=== PATIENT | female | born 1990 ===

== ENCOUNTER 2023-10-31 01:44 | Emergency (ER) | payer BC, SELFPAY ==
[2023-10-31 02:00] VITALS: BP 158/100; PULSE 118; RESP 18; TEMP 35.9; O2SAT 98; BMI 25.6
--- NOTE | 2023-10-31 02:07 | ED_ITS ---
HPI - Animal Bite General Chief Complaint: Animal Bite Stated Complaint: possible rabies exposure Time Seen by Provider: 10/31/23 02:01 History of Present Illness HPI narrative: Patient is a 33-year-old woman who is up-to-date on her tetanus shot who had a exposure to a raccoon several days ago. She did not have a bite or scratch but she did touch the animal and was concerned that some of it is alive maybe got on her. She had no open wounds or cuts at this time. She is quite anxious and worried. She has had symptoms most compatible with anxiety with palpitations general worrying and body aches. No signs of infection at the touch site. She has had no respiratory symptoms and did not inhale any of the raccoon secretions. Related Data Allergies Allergy/AdvReac Type Severity Reaction Status Date / Time No Known Drug Allergies Allergy Verified 10/31/23 02:05 Review of Systems Status of ROS: Reports: 10 or more systems reviewed and unremarkable except as noted in History and below Exam Narrative: Exam Narrative: EXAM GENERAL: Patient appears extremely anxious. EYES: No scleral icterus. ENT: Tympanic membranes and oropharynx normal. THYROID: no thyroid nodules or thyromegaly. LYMPH: No supraclavicular or cervical lymphadenopathy. SKIN: Visible skin seen during exam normal or with benign process only. EXT: No dependent lower extremity pedal edema. HEART: Regular rate and rhythm with no murmurs, rubs, or gallops. LUNGS: Clear to auscultation bilaterally with no crackles or wheezes. ABD: Soft, non tender, non distended. PSYCH: Good eye contact, speech is not pressured. Const: Vital Signs, click to edit/add: Vital Signs - 24 hr 10/31/23 02:00 Temperature 96.6 F L Pulse Rate [Pulse Oximeter] 118 H Respiratory Rate 18 Blood Pressure [Ri ght Forearm] 158/100 H Pulse Oximetry 98 Oxygen Delivery Me thod Room Air Course Course ED Course: Patient seen and examined. Vital Signs Vital signs: Initial Vital Signs Temperature 96.6 F L 10/31/23 02:00 Temperature Source Temporal Artery Scan 10/31/23 02:00 Pulse Rate 118 H 10/31/23 02:00 Pulse Rhythm Regular 10/31/23 02:00 Respiratory Rate 18 10/31/23 02:00 Blood Pressure 158/100 H 10/31/23 02:00 Blood Pressure Mean 119 H 10/31/23 02:00 Blood Pressure Position Supine 10/31/23 02:00 Pulse Oximetry 98 10/31/23 02:00 Oxygen Delivery Method Room Air 10/31/23 02:00 Vital Signs Temperature 96.6 F L 10/31/23 02:00 Pulse Rate 118 H 10/31/23 02:00 Respiratory Rate 18 10/31/23 02:00 Blood Pressure 158/100 H 10/31/23 02:00 Pulse Oximetry 98 10/31/23 02:00 Oxygen Delivery Method Room Air 10/31/23 02:00 Temperature 96.6 F L 10/31/23 02:00 Pulse Rate 118 H 10/31/23 02:00 Respiratory Rate 18 10/31/23 02:00 Blood Pressure 158/100 H 10/31/23 02:00 Pulse Oximetry 98 10/31/23 02:00 Oxygen Delivery Method Room Air 10/31/23 02:00 MDM - Animal Bite MDM Narrative Medical decision making narrative: Patient is a 33-year-old woman who had exposure to a non infected appearing raccoon. She did not have any bites or mucous membrane exposure. She has chronic anxiety which has worsened. I did carefully examine her in find her to be extremely anxious which is noted on her vital signs as well. I do not believe she has a significant enough exposure to warrant any vaccinations. I offered reassurance and recommended follow-up. Discharge Plan Discharge Clinical Impression: Anxiety Patient Disposition: Home, Self-Care Condition: Stable Additional Instructions: Continue current care. Report any change in symptoms. Follow-up with your doctor as needed. Activity Level: No Restrictions Discharge Diet: Regular Stand Alone Forms: [employer] Info Instructions
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
--- OUTSIDE RECORDS SUMMARY | 2023-10-31 02:16 | XMS_ITS | Continuity of Care Document ---
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 Role Phone Allyssa Nixon MD Unavailable Unavailable Allergies, Adverse Reactions, Alerts Substance Reaction Status Criticality metronidazole Active No Information minocycline HivesHives Active No Information amoxicillin Yeast Infection Active No Informati on Tetracyclines unknown reaction Active No Informa tion Medications Medication Instructions Dosage Effective Dates (start - stop) Status Comments gabapentin 300 mg capsule take 1 capsule by oral route every day 300 MG - Active Vitamin D3 25 mcg (1,000 unit) capsule take 2 by Oral route once 2 - Active Procedures Procedure Date Established Level 4 Established Level 4 Established Level 5 or 40 min 0 New Level 5 or 60 min Offic/outpt E&m New Mod Sever 7 Advance Directives Directive Yes / No Effective Date File Name No Information Encounters Encounter Description Practice Location Reason(s) For Visit Diagnoses Date Provider Providers Copied on Encounter [facility], [address] [address], [facility] [place], [id number], [place] tel:[phone] [facility] No Information 1 Tiffani Spivey. [address] [facility], [facility] [address], [place], [place], [id number], [place]. tel:[phone] [facility], [address] [address], [place], [id number], [place] tel:[phone] [facility] Abdominal pain, unspecified abdominal location 1 Felix Muniz. [address] [facility], [address], [id number], [place]. tel:[phone] Established Level 4 [facility], [address] [address], [place], [id number], [place] tel:[phone] [facility] GI Symptoms or Concerns (chief complaint) Abdominal pain, unspecified abdominal locationAnorexia Early satietyNausea and vomiting, intractability of vomiting not specified, unspecified vomiting typeLoose stools 1 Tiffani Spivey. [address] [place] [address], [address], [id number], [place]. tel:[phone] Referring Provider: Referral Self, USE FOR SELF REFERRALS. [facility], [address] [address], [facility] [place], [id number], [place] tel:[phone] [facility] GI Symptoms or Concerns (chief complaint) No Information 1 Tiffani Spivey. [address] [facility], [facility] [address], [place], [id number], [place]. tel:[phone] Referring Provider: Referral Self, USE FOR SELF REFERRALS. Established Level 4 [facility], [address] [address], [facility] [place], [id number], [place] tel:[phone] [facility] Comment (chief complaint) Abdominal pain, unspecified abdominal locationAnorexia Early satietyNausea and vomiting, intractability of vomiting not specified, unspecified vomiting type 1 Tiffani Spivey. [address] [facility], [facility] [address], [place], [id number], [place]. tel:[phone] Referring Provider: Referral Self, USE FOR SELF REFERRALS. Established Level 5 or 40 min [facility], [address] [address], [place], [id number], [place] tel:[phone] [facility] Comment (chief complaint) Abdominal pain, unspecified abdominal locationAnorexia NauseaLoose stools 0 Tiffani Spivey. [address] [facility], [facility] [address], [place], [place], [id number], [place]. tel:[phone] Referring Provider: Referral Self, USE FOR SELF REFERRALS. New Level 5 or 60 min [facility], [address] [address], [place], [place], [id number], [place] tel:[phone] [facility] GI Symptoms or Concerns (chief complaint) Abdominal pain, unspecified abdominal locationNauseaEa rly satietyLoose stoolsAnorexia 0 Tiffani Spivey. [address] [facility], [facility] [address], [place], [id number], [place]. tel:[phone] Referring Provider: Referral Self, USE FOR SELF REFERRALS. [facility], [address] [address], [place], [place], [id number], [place] tel:[phone] [facility] No Information 0 Leah Olivarez. [address] [facility], [facility] [address], [place], [place], [id number], [place]. tel:[phone] Offic/outpt E&m New Mod Sever [facility], [address] [address], [place], [place], [id number], [place] tel:[phone] [facility] GI Symptoms or Concerns (chief complaint) Nausea and vomiting, intractability of vomiting not specified, unspecified vomiting typeEpigastric abdominal painDietary counseling and surveillance 201 7 Sebastian Tong. [address] [facility], [facility] [address], [place], [place], [id number], [place]. tel:[phone] Referring Provider: Padmini West, [address], [place], [address]. tel:[phone] Family History Family Member Type Diagnosis Age At Onset No Information Immunizations Vaccine Date Status Comments SARS-COV-2 (COVID-19) vaccin e, mRNA, spike protein, LNP, preservative free, 30 mcg/0.3mL dose administered Note: [facility] bi-direct ional interface ; Source: Other Registry measles, mumps and rubella v irus vaccine administered Note: [facility] bi-direct ional interface ; Source: Other Registry tetanus and diphtheria toxoi ds, adsorbed, preservative free, for adult use (2 Lf of tetanus toxoid and 2 Lf of diphtheria toxoid) administered Note: [facility] bi-direct ional interface ; Source: Other Registry Payers Payer name Insurance type Covered alliance party ID [employer](s) [facility] [id number] Social History Type Description Quantity Date Captured Comments Alcohol Use Details Unknown Caffeine Use Details Unknown Tobacco Use Status No Information Smoking Status No Information Sex Female Chief Complaint And Reason For Visit No Information Reason For Referral Reason For Referral No Information Plan Of Treatment Date Type Action Status Goal Lifestyle education regardin g diet completed Referral Ordered: CT Abdomen WITH Contrast Appointment date/timeframe: 08/16/2020 ordered Referral Ordered: CT Abdomen And Pelvis WITHOUT And WITH Contrast Appointment date/timeframe: 08/17/2020 ordered Referral Ordered: Gastric Emptying Study (4 Hours) Appointment date/timeframe: 04/28/2020 ordered Referral Ordered: follow-up visit with Allyssa Nixon MD 1 Month Appointment date/timeframe: 1 Month ordered Referral Ordered: CMP Appointment date/timeframe: 03/23/2020 ordered History Of Present Illness Encounter Date Complaint History Of Prese nt Illness GI Symptoms or Concerns Cielo beavers is a pleasant 30-year-old female who is seen in followup.Her last office visit was 04/04/2020. Please see my note for complete details regarding her relevant history. She is seen via a telephone encounter.In brief, Ms. Temple is a 30-year-old female with untreated anorexia nervosa, purging disorder, depression, anxiety, PTSD, fibromyalgia, and PMDD, who has been seen previously for multiple chronic gastrointestinal symptoms.Since our last visit, the patient reports worsening of her chronic gastrointestinal symptoms which have been present since she was in high school, noted initially in the context of treatment for her eating disorder.She describes flare of symptoms at the end of June. She describes periods of constant abdominal pain which is poorly localized. She notes nausea and vomiting, which has recently become worse. States vomiting triggers her purging disorder. Her symptoms of nausea and vomiting were worse when she was placed on Cymbalta, which is now discontinued. She notes early satiety, bloating. She has had chronic loose stool 1 per day, though at times more. In the last few days, she reports symptoms are starting to return to baseline. She did stop use of marijuana for a very short period of time, but then noted recurrence of her gastrointestinal symptoms, thus resumed use. She states I will never eat if I do not use marijuana. Reports discontinuation of marijuana also triggers her purging disorder.With regard to her eating disorder, she continues to not desire treatment. States I am not trying to recover before summer, I am not at my goal weight. She is followed by her primary care doctor who has been monitoring her electrolytes. She states she cannot exercise because of foot pain, thus she has had to restrict her eating even more. Eats one meal per day. She has been referred to a psychologist for assistance with mental health disorders, however, has not yet scheduled.She discontinued omeprazole as she did not feel this was improving the symptoms. It is noted that she has previously tried dicyclomine without change. She has not desired to pursue dietary therapies given her eating disorder. She does not feel she would be able to complete the gastric emptying study as previously recommended. She is concerned that she has SMA syndrome and would like additional testing for this as previously discussed.MEDICATIONSVitamin D and gabapentin.PRIOR WORKUP- Celiac blood tests have been negative per report.- Cholecystectomy was done previously without improvement in the symptoms.- An upper endoscopy in 2014, including biopsies of the esophagus, stomach and small intestine were normal.- Laboratory investigation from 03/22/2020, notable for normal CBC with the exception of a low white blood cell count, normal BMP, LFTs, magnesium, CRP, phos, TSH, and vitamin D, normal. - Stool Helicobacter pylori testing is negative. GI Symptoms or Concerns Comment Cielo Temple is a pleasant 29-year-old female who is seen in followup. Her last office visit was on 02/22/2020. Please see my note for complete details regarding her relevant history. She is seen via telephone encounter.In brief, she is a 29-year-old female with anorexia nervosa, purging disorder in remission, depression, anxiety, PTSD, fibromyalgia, and PMDD, who has been seen previously for evaluation of multiple chronic gastrointestinal symptoms.Today, the patient reports her symptoms have not changed significantly. She continues to endorse nausea without vomiting, upper abdominal pain, early satiety. She has not been consistently using the omeprazole 20 mcg daily, as she simply forgets to take the medication, using it twice per week on average. She does not take dicyclomine as she did not notice meaningful improvement on the medicine and gave up. She is continuing to use cannabis, though has planned to quit in March. She uses it daily. She does raise concerns that she will lose her appetite and her eating disorder will take over and she will not eat.She reports her anxiety is through the roof. She only feels depressed and suicidal if she is eating too much and gaining weight. She does not like psychiatrists or mental health providers. She is using Ativan for anxiety, but no other psychiatric medications. She does not desire followup with a psychiatrist.She desires to continue with restrictive eating behavior. She has been seen by primary care physician who recommended she initiate Pedialyte given ongoing disordered eating. She does continue to decline treatment of her eating disorder. She has been seen by multiple providers for eating disorder including at the [facility] and [facility].PRIOR WORKUP- Celiac blood tests have been negative previously per report.- Cholecystectomy was done without any improvement in symptoms.- An upper endoscopy performed in 2014 including biopsies of the esophagus, stomach, and small intestine were normal.- On review of prior records, CBC, BMP, LFTs, and lipase have been normal dating back to 2017.- Laboratory investigation from 03/22/2020 notable for a normal CBC with the exception of a low WBC; normal BMP, LFTs, magnesium, CRP, phosphorus, TSH, and vitamin D. Stool Helicobacter pylori testing is negative. Comment Cielo Temple is a pleasant 29-year-old female who is seen via telehealth. Her last office visit was on 02/02/2020. Please see my note for complete details regarding her relevant history.In brief, Ms. Temple is a 29-year-old female with anorexia nervosa, purging disorder in remission, depression, anxiety, PTSD, fibromyalgia, and PMDD who has been seen previously for evaluation of multiple chronic gastrointestinal symptoms. Today, she states her symptoms are unchanged. She did initiate omeprazole 20 mg daily, though has not noticed improvement in nausea, vomiting, or upper abdominal pain. Finds it difficult to take the medication as it is to be taken before meals and she only eats once per day due to restrictive eating habits. She did trial the dicyclomine, though again discontinued this as she did not feel it was effective. Troy like she could not take the medication unless she ate and she did not want to eat with her pills, again due to concern regarding weight gain and restricted eating behavior.The patient reports she does not feel her cannabis use is a problem as it is the only thing on the planet that helps her. She has not had an appetite for several months and is forcing herself to eat.At the time of our last visit, the patient was recommended to undergo laboratory investigation, which was not completed. She states her mom did not want her to get exposed to COVID and thus urged her not to complete testing. She has not yet established care with a primary doctor or sought evaluation by a chief dietitian. She feels her encounters with various healthcare providers have triggered her eating disorder. She feels she is not taken seriously as she is not thin enough. She does not feel validated by healthcare providers. She does not desire treatment for her eating disorder as she has not found anyone who truly understood her disease, after 16 years of suffering from the illness with multiple healthcare encounters. She has been seen at the [facility] as well as [facility] in the past.PRIOR WORKUP- Celiac blood tests have been negative per report.- Cholecystectomy done without any improvement in symptoms.- An upper endoscopy performed in 2014, including biopsies of the esophagus, stomach and small intestine were normal.- On review of prior records from 2017, apparently CBC, BMP LFTs and lipase have been normal on multiple urgent care visits. GI Symptoms or Concerns Cielo beavers is a pleasant 29-year-old female who is seen via telehealth for evaluation of multiple gastrointestinal symptoms. She is a new patient.I note that at the onset of our visit, the patient voices distrust for the medical community stating that she has been seen by multiple white doctors and has not felt she has been taken seriously as a woman of color. States the racism and sexism she has encountered have been triggers for her eating disorder and depression.She reports abdominal symptoms since the age of 13, shortly after discharge from inpatient treatment for anorexia. After discharge, she felt she was made to overeat and developed several gastrointestinal symptoms. Symptoms peaked in 2017 and have since stabilized. She describes poor appetite and having to force herself to eat. She notes early satiety. She experiences nausea which is daily without vomiting. Symptoms can be exacerbated by eating. She describes daily abdominal pain which is diffuse, often crampy, localized to the lower quadrants, but also in the upper abdomen; also worse after eating. Previously, symptoms had improved with a bowel movement, though this has not been beneficial recently. She reports 1 loose bowel movement daily, usually after a meal. This can be worse with stress. She has heartburn and regurgitation, which is worse in the last few weeks. She has occasionally had blood in the stool approximately 3 times in her life; usually this is just a scant amount of blood on the toilet paper, there is no blood mixed in the stool, and there is no melena. She has had an endoscopic workup since onset of these symptoms. She denies dysphagia, odynophagia, vomiting, fevers, or chills.She smokes marijuana daily for years to make herself hungry. She feels she has cannabinoid deficiency syndrome and needs cannabis to function. Regarding her anorexia, she tells me she is not thin enough to recover. The patient does continue to practice restrictive eating patterns and tells me that she hopes to get to her goal weight before the holidays. When asked about her weight, the patient states she does not weight herself and she has become suicidal when weight gain is noted. She states she is not underweight. She usually eats 1 meal per day and states that prolonged periods of fasting make her heart hurt. She has seen numerous providers at the [facility] and [facility] and states that treatment has not been effective for her. She states the professionals do not know enough about anorexia. She reports she is taking all precautions to make sure she does not , but desires to continue restrictive behavior. She takes potassium and magnesium to make sure her electrolytes are okay. She does not have suicidal ideations today.PRIOR WORKUP- She reports celiac blood tests have been negative.- She did undergo cholecystectomy without any improvement in symptoms.- EGD and colonoscopy performed within the last few years were apparently unrevealing. This may have been done in the [facility]; results are not available for my review.- On review of prior records from 2017 in our office, apparently CBC, BMP, LFTs and lipase have been normal in multiple urgent cares.PAST MEDICAL HISTORYFibromyalgia, irritable bowel syndrome, anxiety, depression, chronic fatigue, panic disorder, PTSD, PMDD, recovered from purging disorder, and anorexia.PAST SURGICAL HISTORYCholecystectomy, no other gastrointestinal surgery.I note that a cholecystectomy was done to try and improve her symptoms and did not result in any benefit.MEDICATIONSReviewed. Magnesium, vitamin D, and potassium.SOCIAL HISTORYSmokes marijuana daily. No tobacco or alcohol. 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 GI Symptoms or Concerns Cielo beavers is a 26-year-old female with a medical history of fibromyalgia, anxiety, depression, and PTSD in addition to previous cholecystectomy who presents today for evaluation of chronic nausea.The patient has a constellation of symptoms. The predominant symptom today for evaluation would be nausea. She cites that her nausea is constant. It is there when she wakes up in the morning and persists throughout the day. Eating does not necessarily worsen her symptoms. Having a bowel movement does not help her symptoms. She mentions over the past month, she has thrown up on three occasions. She has had very little appetite. She denies that she is losing any weight. There is no hematochezia, but she does mention some epigastric discomfort and diffuse tenderness throughout her abdomen. Again, this is a constant discomfort unaffected by more eating or bowel movements. She denies melena, hematochezia, or rectal bleeding. No fevers or chills.She has been evaluated at [facility] Functional Status Date Functional Assessmen t No Information Instructions Date Instruction Additional Infor jayne Lifestyle education regarding di et Related to Dietary counseling and surveillance Assessments Type Assessment Date No Information Patient Care Teams Name Effective Dates (start - stop) Status Members No Information
--- OUTSIDE RECORDS SUMMARY | 2023-10-31 02:16 | XMS_ITS | Continuity of Care Document ---
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 [address] [facility], [facility], [place], [place], [id number], [place]. tel:[phone] [facility], [address] [address], [place], [id number], [place] tel:[phone] [facility] Abdominal pain, unspecified abdominal location 1 Felix Muniz. [address] [facility], [address], [id number], [place]. tel:[phone] Established Level 4 [facility], [address] [address], [place], [id number], [place] tel:[phone] [facility] GI Symptoms or Concerns (chief complaint) Abdominal pain, unspecified abdominal locationAnorexia Early satietyNausea and vomiting, intractability of vomiting not specified, unspecified vomiting typeLoose stools 1 Tiffani Spivey. [address] [place] [address], [address], [id number], [place]. tel:[phone] Referring Provider: Referral Self, USE FOR SELF REFERRALS. [facility], [address] [address], [facility] [place], [id number], [place] tel:[phone] [facility] GI Symptoms or Concerns (chief complaint) No Information 1 Tiffani Spivey. [address] [facility], [facility] [address], [place], [id number], [place]. tel:[phone] Referring Provider: Referral Self, USE FOR SELF REFERRALS. Established Level 4 [facility], [address] [address], [facility] [place], [id number], [place] tel:[phone] [facility] Comment (chief complaint) Abdominal pain, unspecified abdominal locationAnorexia Early satietyNausea and vomiting, intractability of vomiting not specified, unspecified vomiting type 1 Tiffani Spivey. [address] [facility], [facility] [address], [place], [id number], [place]. tel:[phone] Referring Provider: Referral Self, USE FOR SELF REFERRALS. Established Level 5 or 40 min [facility], [address] [address], [place], [id number], [place] tel:[phone] [facility] Comment (chief complaint) Abdominal pain, unspecified abdominal locationAnorexia NauseaLoose stools 0 Tiffani Spivey. [address] [facility], [facility], [place], [place], [id number], [place]. tel:[phone] Referring Provider: Referral Self, USE FOR SELF REFERRALS. New Level 5 or 60 min [facility], [address] [address], [place], [place], [id number], [place] tel:[phone] [facility] GI Symptoms or Concerns (chief complaint) Abdominal pain, unspecified abdominal locationNauseaEa rly satietyLoose stoolsAnorexia 0 Tiffani Spivey. [address] [facility], [facility] [address], [place], [id number], [place]. tel:[phone] Referring Provider: Referral Self, USE FOR SELF REFERRALS. [facility], [address] [address], [place], [place], [id number], [place] tel:[phone] [facility] No Information 0 Leah Olivarez. [address] [facility], [facility], [place], [place], [id number], [place]. tel:[phone] Offic/outpt E&m New Mod Sever [facility], [address] [address], [place], [place], [id number], [place] tel:[phone] [facility] GI Symptoms or Concerns (chief complaint) Nausea and vomiting, intractability of vomiting not specified, unspecified vomiting typeEpigastric abdominal painDietary counseling and surveillance 201 7 Sebastian Tong. [address] [facility], [facility], [place], [place], [id number], [place]. tel:[phone] Referring Provider: Padmini West, [address], [place], [address]. tel:[phone] Family History Family Member Type Diagnosis Age [...] Registry Payers Payer name Insurance type Covered republican ID Bc mcbride(s) [facility] [id number] Social History Type Description Quantity Date Captured [...] providers for eating disorder including at the [facility] and [facility].PRIOR WORKUP- Celiac blood tests have been [...] she did not feel it was effective. [place] like she could not take the medication [...] primary doctor or sought evaluation by a sand bobber. She feels her encounters with various healthcare [...] encounters. She has been seen at the [facility] as well as [facility] in the past.PRIOR WORKUP- Celiac blood tests [...] She has seen numerous providers at the [facility] and [facility] and states that treatment has not been [...] This may have been done in the [facility]; results are not available for my [...] alcohol. 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 GI Symptoms or [...] fevers or chills.[facility] Status Date Functional Assessmen t No Information Instructions Date Instruction Additional Infor jayne Lifestyle education regarding di et Related to Dietary counseling and surveillance Assessments Type Assessment Date No Information Patient Care Teams Name Effective Dates (start - stop) Status Members No Information
== END 2023-10-31 02:36 | disposition home or self-care (01) ==
LOC: ED 02:14
PROVIDERS: Emergency Provider Internal Medicine; PCP Family Medicine
DX: F41.9 Anxiety disorder, unspecified (principal)
CPT/HCPCS: 99282; 99283